=== PATIENT | male | born 1950 | race Caucasian/White ===

== ENCOUNTER 2017-04-09 08:25 | Emergency (ER) | payer MEDICARE ==
[2017-04-09] MEDS ORDERED: Acetaminophen TAB* 325 MG PO ONE (08:56)
--- NOTE | 2017-04-09 09:04 | UC ---
Shoulder Pain HPI - HPI Summary HPI Summary: 3 days ago he pickup something or moved something and got pain in left shoulder. Does not remember specifically what he did to start the pain - History of Current Complaint Chief Complaint: UCUpperExtremity Stated Complaint: LEFT SHOULDER INJURY Time Seen by Provider: 04/09/17 08:50 Hx Obtained From: Patient Onset/Duration: Sudden Onset, Lasting Days - 3, Still Present Timing: Constant Severity Initially: Moderate Severity Currently: Moderate Location Of Pain: Is Discrete @ - enterire left should Pain Intensity: 10 Pain Scale Used: 0-10 Numeric Character: Aching, Throbbing Aggravating Factor(s): Movement, Other - touch Alleviating Factor(s): Nothing Associated Signs And Symptoms: Positive: Swelling Related History: Similar Episode/Dx As - bursitis in the past about 10 years ago treated with steroid injections with execellent relief, Dominant Hand Right - Allergies/Home Medications Allergies/Adverse Reactions: Allergies Allergy/AdvReac Type Severity Reaction Status Date / Time Bee Venom Allergy Severe SWELLING, Verified 04/09/17 08:46 DIFFICULTY BREATHING Home Medications: Home Medications Acetaminophen [Tylenol 8 Hour Arthritis] 650 mg PO Q8H PRN 04/09/17 [History Confirmed 04/09/17] Amlodipine Besylate [Norvasc 10 mg tab] 10 mg PO DAILY 04/09/17 [History Confirmed 04/09/17] Ascorbic Acid [C 500] 500 mg PO 04/09/17 [History] Aspirin EC Low Dose* [Ecotrin EC Low Dose 81 MG*] 81 mg PO DAILY 04/09/17 [ History Confirmed 04/09/17] Atenolol TAB* [Tenormin TAB* 25 MG] 25 mg PO DAILY 04/09/17 [History Confirmed 04/09/17] Cholecalciferol [D 1000] 1,000 unit PO DAILY 04/09/17 [History Confirmed ] Clopidogrel TAB* [Plavix TAB*] 75 mg PO DAILY 04/09/17 [History Confirmed ] Docusate CAP* [Colace Cap*] 100 mg PO DAILY 04/09/17 [History Confirmed 04/09/17 ] Fiber [Fiber Adult Gummies 2 gm] 1 chw PO DAILY 04/09/17 [History Confirmed 08/21] Multiple Vitamins W/ Minerals [Multivitamin Adults] 1 tab PO DAILY 04/09/17 [ History Confirmed 04/09/17] Nitroglycerin TAB 0.4 MG* 0.4 mg SL Q5M PRN 04/09/17 [History Confirmed 04/09/17 ] [place]-3 Fatty Acids [Fish Oil] 1,000 mg PO 04/09/17 [History] Simvastatin TAB(NF) [Zocor 20 MG (NF)] 40 mg PO 1700 04/09/17 [History Confirmed 04/09/17] Tamsulosin CAP* [Flomax CAP*] 0.4 mg PO DAILY 04/09/17 [History Confirmed ] Vardenafil (NF) [Levitra (NF)] 04/09/17 [History] PMH/Surg Hx/FS Hx/Imm Hx Previously Healthy: No Endocrine History: Dyslipidemia Cardiovascular History: Cardiac Disease - Social History Occupation: Employed Full-time, Employed Part-time Lives: With Family Alcohol Use: None Substance Use Type: None Smoking Status (MU): Never Smoked Tobacco Review of Systems Constitutional: Negative Skin: Negative Eyes: Negative ENT: Negative Respiratory: Negative Cardiovascular: Negative Gastrointestinal: Negative Genitourinary: Negative Motor: Negative Neurovascular: Negative Musculoskeletal: Arthralgia - left shoulder---hurts with touch and movement, Neurological: Negative Psychological: Negative Is Patient Immunocompromised?: No All Other Systems Reviewed And Are Negative: Yes Physical Exam Triage Information Reviewed: Yes Appearance: Well-Appearing, No Pain Distress, Well-Nourished Vital Signs Reviewed: Yes Eye Exam: Normal Eyes: Positive: Conjunctiva Clear ENT Exam: Normal ENT: Positive: Normal ENT inspection, Hearing grossly normal. Negative: Nasal drainage, Trismus, Muffled voice, Hoarse voice Dental Exam: Normal Neck exam: Normal Neck: Positive: Supple, Nontender, No Lymphadenopathy Respiratory Exam: Normal Respiratory: Positive: Chest non-tender, Lungs clear, Normal breath sounds, No respiratory distress, No accessory muscle use Cardiovascular Exam: Normal Cardiovascular: Positive: RRR, No Murmur, Pulses Normal, Brisk Capillary Refill Musculoskeletal Exam: Normal Musculoskeletal: Positive: No Edema, Strength Limited @ - left shoulder, ROM Limited @ - left shoulder Neurological Exam: Normal Neurological: Positive: Alert Psychological Exam: Normal Skin Exam: Normal Diagnostics - Radiology No standard instances Xray Interpretation: Positive (See Comments) - CAlcific Tendonitis Radiology Interpretation Completed By: ED Physician, Radiologist Shoulder Course/Dx - Course Assessment/Plan: sling, ortho, pain med, steriod po rest - Differential Dx/Diagnosis Provider Diagnoses: Left Shoulder calcific Tendonitis Discharge - Discharge Plan Condition: Stable Disposition: HOME Prescriptions: HYDROcodone/ACETAMIN 5-325 MG* [Jesup 5-325 TAB*] 1 tab PO Q4H PRN #20 tab MDD 6 PRN Reason: pain Methylprednisolone [Medrol Dosepak 4 MG*] 4 mg PO .SEE JAMES INSTRUCTION #1 james Patient Education Materials: Calcific Tendinitis (ED) Referrals: Benedict Mares MD [Medical Doctor] - 3 Days
[2017-04-09 09:07] VITALS: BP 123/70
--- NOTE | 2017-04-09 09:38 | RAD ---
INDICATION: Left shoulder pain radiating down the left arm COMPARISON: None. TECHNIQUE: 4 views of the left shoulder were obtained. FINDINGS: Overlying the superior lateral humeral head there is lobulated appearing calcification measuring up to 8 x 16 mm overlying the expected location of the supraspinatus tendon. The adequately corticated bones are in normal alignment. Joint spaces appear maintained. No fracture, dislocation or focal bony abnormality is seen. IMPRESSION: IN THE CORRECT CLINICAL SETTING THE RADIOGRAPHIC FINDINGS COULD BE SEEN IN CALCIFIC TENDINITIS INVOLVING THE ROTATOR CUFF TENDONS. If the patient's symptoms persist, follow-up imaging is recommended.
== END 2017-04-09 09:53 | disposition home or self-care (01) ==
LOC: UCCORT 08:25
DX: M75.32 Calcific tendinitis of left shoulder (principal); E78.5 Hyperlipidemia, unspecified; I51.9 Heart disease, unspecified; Z79.01 Long term (current) use of anticoagulants; Z79.82 Long term (current) use of aspirin
CPT/HCPCS: 99212; A9270-GY; G0463

== ENCOUNTER 2017-05-08 08:42 | Emergency (ER) | payer MEDICARE ==
--- OUTSIDE RECORDS SUMMARY | 2017-05-08 08:58 | XMS REPORT ---
:1950 External Reference #:[id number] Author Organization [employer] Address [address] [address] Phone [phone] Care Team Providers Name Role Phone Anil Salgado III, MD Primary Care Physician Unavailable Payers Type Date Identification Numbers Payment Provider Subscriber Medicare Primary Policy Number: [id number] Medicare Dm Saldana PayID: [id number] [address] [place] [address] [facility] Part B Policy Number: [id number] [facility] Dm Saldana PayID: [id number] [address] [place] [address] Problems Date Description Provider Status Onset: 05/10/2011 Benign essential hypertension Anil Salgado M.D. Active Onset: 05/10/2011 Coronary arteriosclerosis Anil Salgado M.D. Active Onset: 05/10/2011 Pure hypercholesterolemia Anil Salgado M.D. Active Onset: 05/10/2011 Carotid artery occlusion Anil Salgado M.D. Active Onset: 02/10/2015 Essential hypertension Anil Salgado M.D. 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 Began age 13 ETOH Use consumes 2-3 beers per week Smoking Patient is a former smoker Exercise Type/Frequency Walks on occ. 15-20 minutes most days Allergies, Adverse Reactions, Alerts Date Description Reaction Status Severity Comments 10/14/2008 Environmental active 10/14/2008 Bee Stings active 01/13/2014 Crestor active leg cramps Medications Medication Date Status Form Strength Qnty SIG Indications Ordering Provider Plavix 11/08/ Active Tablets 75mg 30tabs 1 by mouth Other 2015 every day Ordering Provider Fiber Select 08/10/ Active Chewtabs 120uni 2 chewtabs Anil Ortiz Gummies 2015 ts by mouth Naomi, twice a M.D. day Amlodipine 05/31/ Active Tablets 10mg 30tabs take 1 Anil Ortiz Besylate 2011 tablet by Naomi, mouth once M.D. daily;pt needs appt. with MD before gtting more refills Fish Oil 10/26/ Active Capsules 1000mg 90caps 2 po qd Anil Ortiz 2009 Chantal Salgado Multivitamins 10/14/ Active Tablets 90tabs 1 po qd Jorge 2008 Jaziel Méndez, Levitra / Active Tablets 10mg i tab by Unknown 0000 mouth daily as needed Colace / Active Capsules 100mg 60caps prn Unknown 0000 Flomax / Active Capsules 0.4mg 1 by mouth Unknown 0000 every day Atenolol / Active Tablets 25mg 15tabs take 1 Marcos 0000 tablet by Pardeep Valerio, mouth once M.D.,FACP daily Nitrostat / Active Tablets 0.4mg one sl Unknown 0000 Sub q5min up to 3 doses as needed Tylenol / Active Tablets ER 650mg as needed Unknown Arthritis Pain 0000 Vitamin C / Active Tablets 500mg 1 by mouth Unknown 0000 every day Vitamin D / Active Tablets 1000Unit by mouth Unknown 0000 everyday Simvastatin / Active Tablets 20mg take 1 Unknown 0000 tablet by mouth once daily Aspirin / Active Tablets 325mg take 1 by Unknown 0000 mouth once a day and may repeat 1 dose prn for pain Sulfamethoxazol 02/15/ Hx Tablets 800-160mg 42tabs 1 by mouth R30.0 Anil paiz/Trimethoprim 2015 - twice a Naomi DS 04/06/ day M.D. 2016 Aspirin 11/08/ Hx Chewtabs 81mg 1 by mouth Anil Ortiz 2015 - every day Naomi 04/12/ M.D. 2016 Lovastatin 06/27/ Hx Tablets 20mg 90tabs po qhs 272.0 Anil Ortiz 2011 - Naomi M.D. 2011 Pravastatin 05/10/ Hx Tablets 40mg 30tabs 1 tablet 272.0 Anil Zafar 2011 - daily at Naomi, 06/27/ bedtime M.D. 2011 Ok To Return To No Anil Ortiz Work, But Only 2009 - Naomi perez, Light Duty For 05/02/ lifting, M.D. 1 Week 2009 twisting Celebrex 07/07/ Hx Capsules 200mg 30caps 1 po qd Anil Ortiz 2009 - Naomi, M.D. 2009 Lovaza 10/27/ Hx Capsules 1gm 90caps 1 po tid Anil Ortiz 2008 - Naomi, M.D. 2009 Aspirin 10/14/ Hx Tablets DR 325mg 30tabs 1 po qd Van 2008 - Doren, 11/08/ Jaziel, DO 2015 Ibuprofen 10/14/ Hx Capsules 200mg PO 2 po Van 2008 - bid, prn Doren, Jaziel, DO 2014 Combivent 1Month 2 puffs Van Inhaler 2008 - qid prn Dorkofi, 02/10/ Jaziel, DO 2014 Norvasc / Hx Tablets 10mg 30tabs 1 po qd Anil Ortiz 0000 - Naomi, M.D. 2011 Crestor / Hx Tablets 10mg 30tabs 1 po qd Anil Ortiz 0000 - Naomi, M.D. 2011 Lovaza / Hx Capsules 1000mg 90caps 1 po bid Anil Edwards - Naomi, M.D. 2008 Pravastatin 00/ Hx Tablets 20mg 30tabs 1 tablet Unknown Sodium 0000 - by mouth 05/20/ once daily 2012 at bedtime Coq-10 / Hx Capsules 100mg 90caps 1 po qd Unknown 0000 - 2015 Lovastatin /00/ Hx Tablets 20mg 90tabs 1 po qhs Anil Edwards - Naomi, M.D. 2014 Fluvastatin /00/ Hx Capsules 20mg 1 tablet Unknown Sodium 0000 - daily 2015 Livalo 00/ Hx Tablets 2mg take 1 Unknown 0000 - tablet 2015 evening Medications Administered in Office Medication Date Status Form Strength Qnty SIG Indications Ordering Provider Celestone 3 mg Administered Injection León M and 3mg Chay Barker MD Immunizations CPT Code Status Date Vaccine Lot # [id number] Given 10/14/2008 Tetanus And Diptheria (Td) For Adult Use TD-160 Preservative Free Vital Signs Date Vital Result Comment 04/13/2017 Height 67.75 inches 5'7.75" Heart Rate 76 /min BP Systolic Sitting 140 mmHg BP Diastolic Sitting 88 mmHg Respiratory Rate 12 /min no respiratory difficulties Pain Level 7 04/09/2017 Height 67.75 inches 5'7.75" Weight 215.00 lb Heart Rate 78 /min BP Systolic Sitting 126 mmHg BP Diastolic Sitting 76 mmHg Respiratory Rate 18 /min Body Temperature 98.8 F Pain Level 9 BMI (Body Mass Index) 32.9 kg/m2 02/16/2016 Height 67.75 inches 5'7.75" Weight 218.00 lb Heart Rate 89 /min BP Systolic Sitting 142 mmHg BP Diastolic Sitting 76 mmHg Body Temperature 98.5 F O2 % BldC Oximetry 97 % BMI (Body Mass Index) 33.4 kg/m2 08/11/2015 Weight 225.00 lb Heart Rate 77 /min BP Systolic Sitting 137 mmHg BP Diastolic Sitting 77 mmHg Body Temperature 97.6 F 02/10/2015 Height 67.75 inches 5'7.75" Weight 220.00 lb Heart Rate 88 /min BP Systolic Sitting 128 mmHg BP Diastolic Sitting 88 mmHg Respiratory Rate 13 /min Body Temperature 98.0 F O2 % BldC Oximetry 97 % BMI (Body Mass Index) 33.7 kg/m2 01/13/2014 Height 67.75 inches 5'7.75" Weight 209.00 lb Heart Rate 76 /min BP Systolic Sitting 122 mmHg BP Diastolic Sitting 78 mmHg Respiratory Rate 14 /min Body Temperature 98.5 F O2 % BldC Oximetry 97 % BMI (Body Mass Index) 32.0 kg/m2 06/09/2013 Height 67.75 inches 5'7.75" Weight 209.50 lb Heart Rate 80 /min BP Systolic Sitting 120 mmHg BP Diastolic Sitting 68 mmHg BMI (Body Mass Index) 32.1 kg/m2 12/05/2012 Height 68 inches 5'8" Weight 204.00 lb Heart Rate 82 /min BP Systolic Sitting 124 mmHg BP Diastolic Sitting 80 mmHg BMI (Body Mass Index) 31.0 kg/m2 05/20/2012 Height 68 inches 5'8" Weight 207.00 lb Heart Rate 80 /min BP Systolic Sitting 120 mmHg BP Diastolic Sitting 80 mmHg BMI (Body Mass Index) 31.5 kg/m2 11/16/2011 Height 68 inches 5'8" Weight 204.25 lb Heart Rate 79 /min BP Systolic Sitting 140 mmHg irreg. BP Diastolic Sitting 80 mmHg irreg. BMI (Body Mass Index) 31.1 kg/m2 05/10/2011 Height 69.5 inches 5'9.50" Weight 210.00 lb Heart Rate 100 /min BP Systolic Sitting 142 mmHg BP Diastolic Sitting 70 mmHg BMI (Body Mass Index) 30.6 kg/m2 11/14/2010 Weight 202.00 lb Heart Rate 76 /min BP Systolic Sitting 132 mmHg BP Diastolic Sitting 78 mmHg 05/10/2010 Weight 206.00 lb Heart Rate 76 /min BP Systolic Sitting 126 mmHg BP Diastolic Sitting 84 mmHg 11/30/2009 Heart Rate 82 /min BP Systolic Sitting 130 mmHg BP Diastolic Sitting 70 mmHg 10/26/2009 Weight 203.00 lb Heart Rate 68 /min BP Systolic Sitting 134 mmHg BP Diastolic Sitting 70 mmHg 06/30/2009 Weight 202.00 lb Heart Rate 80 /min BP Systolic Sitting 134 mmHg BP Diastolic Sitting 80 mmHg 01/14/2009 Weight 202.00 lb Heart Rate 76 /min BP Systolic Sitting 110 mmHg BP Diastolic Sitting 68 mmHg 10/14/2008 Height 68 inches 5'8" Weight 196.00 lb Heart Rate 80 /min BP Systolic Sitting 156 mmHg BP Diastolic Sitting 82 mmHg BMI (Body Mass Index) 29.8 kg/m2 Results Test Date Test Result H/L Range Note CBC Auto Diff 04/10/2017 White Blood Count 17.1 10^3/uL High 3.5-10.8 Red Blood Count 4.88 10^6/uL 4.0-5.4 Hemoglobin 15.1 g/dL 14.0-18.0 Hematocrit 45 % 42-52 Mean Corpuscular Volume 92 fL 80-94 Mean Corpuscular Hemoglobin 31 pg 27-31 Mean Corpuscular HGB Conc 34 g/dL 31-36 Red Cell Distribution Width 14 % 10.5-15 Platelet Count 229 10^3/uL 150-450 Mean Platelet Volume 8 um3 7.4-10.4 Abs Neutrophils 15.4 10^3/uL High 1.5-7.7 Abs Lymphocytes 0.6 10^3/uL Low 1.0-4.8 Abs Monocytes 1.1 10^3/uL High 0-0.8 Abs Eosinophils 0 10^3/uL 0-0.6 Abs Basophils 0 10^3/uL 0-0.2 Abs Nucleated RBC 0.01 10^3/uL Granulocyte % 90.1 % High 38-83 Lymphocyte % 3.5 % Low 25-47 Monocyte % 6.2 % 1-9 Eosinophil % 0 % 0-6 Basophil % 0.2 % 0-2 Nucleated Red Blood Cells % 0.1 Laboratory test finding 04/10/2017 Erythrocyte Sed Rate 12 mm/Hr 0-40 C Reactive Protein 48.51 mg/L High < 5.00 1 Urinalysis Profile 02/16/2016 Urine Color Yellow Urine Appearance Cloudy Urine Specific [place] 1.015 1.010-1.030 Urine pH 6.0 5-9 Urine Urobilinogen Negative Negative Urine Ketones Negative Negative Urine Protein Negative Negative Urine Leukocytes 3+ Negative Urine Blood Negative Negative Urine Nitrite Negative Negative Urine Bilirubin Negative Negative Urine Glucose Negative Negative Urine White Blood Cell 3+(>20/hpf) Absent Urine Red Blood Cell 1+(3-5/hpf) Absent Urine Bacteria 3+ Absent Urine Squamous Epithelial Cell Present Absent Urine Culture And 02/16/2016 Urine Culture SEE RESULT BELOW 2 Sensitivities Laboratory test finding 02/16/2016 PSA Diagnostic 5.010 ng/mL High 0- 4.000 3 Ua Routine 02/16/2016 Ua Specific [place] 1.015 Ua PH 6 Ua Color yellow Ua Appera clear Ua WBC + Ua Protein trace Ua Glucose neg Ua Ketones neg Ua Bilirubin neg Ua Urobilinogen normal Ua Nitrite neg Ua Occult Blood neg Laboratory test finding 04/08/2015 Surgical Pathology SEE RESULT BELOW 4 Laboratory test finding 11/14/2011 PSA,Diagnostic 3.06 NG/ML 0-4 5 Laboratory test finding 09/25/2011 Alt (SGPT) 30 U/L 17-63 Ast (Sgot) 25 U/L 12-42 Lipid Profile (Trig/Chol/HDL) 09/25/2011 Triglyceride 148 mg/dL 40-200 Cholesterol 158 mg/dL Less Than 200 6 High Density Lipoprotein 39 mg/dL Low 40-60 7 Cholesterol/HDL Ratio 4.05 AVERAGE 1-4.97 Low Density Lipoprotein 89 mg/dL Less Than 100 8 CBC Auto Diff 09/25/2011 White Blood Count 5.8 CUMM 4.8-10.8 Red Cell Count 4.56 CUMM Low 4.6-6.2 Hemoglobin 14.9 g/dL 14.0-18.0 Hematocrit 42 % 42-52 Mean Corpuscular Volume 92 um3 80-94 Mean Corpuscular Hemoglob 33 pg High 27-31 Mean Corpuscular HGB Cone 35 g/dL 32-36 Redcell Distribution WDTH 13 % 10.5-15 Platelet Count 192 CUMM 150-450 Mean Platelet Volume 8.6 um3 7.4-10.4 Gran % 75.7 % 38-83 Lymph % 14.8 % Low 25-47 Mononuclear % 7.5 % 1-9 Eosinophil % 1.4 % 0-6 Basophil % 0.6 % 0-2 Abs Lymphs 0.9 Low 1.0-4.8 Abs Mononuclear 0.4 0-0.8 Absolute Neutrophil Count 4.4 1.5-7.7 Abs Eosinophils 0.1 0-0.6 Abs Basophils 0 0-0.2 9 Comp Metabolic Panel 09/25/2011 Sodium 139 mmol/L 135-145 Potassium 4.5 mmol/L 3.5-5.0 Chloride 106 mmol/L 101-111 Co2 (Carbon Dioxide) 28.0 mmol/L 22-32 Anion Gap 5.0 mmol/L 2-11 10 Glucose 111 mg/dL High 70-100 BUN 14 mg/dL 6-24 Creatinine 0.9 mg/dL 0.50-1.40 One Over Creatinine 1.11 BUN/Creatinine Ratio 15.6 8-20 Calcium 9.0 mg/dL 8.1-9.9 Total Protein 5.9 GM/DL Low 6.2-8.1 Albumin 4.1 GM/DL 3.2-5.2 Globulin 1.8 GM/DL Low 2-4 Albumin/Globulin Ratio 2.3 1-3 Bilirubin Total 0.8 mg/dL 0.4-1.5 11 Alkaline Phosphatase 70 U/L 39-117 Alt (SGPT) 30 U/L 17-63 Ast (Sgot) 26 U/L 12-42 eGFR Non- 85.2 > 60 eGFR 109.6 > [address] Salgado's Lab Panel 09/25/2011 TSH 1.38 MIU/ML 0.34-5.60 Laboratory test finding 09/25/2011 PSA,Diagnostic 10.77 NG/ML High 0-4 13 Lipid Profile (Trig/Chol/HDL) 01/10/2011 Triglyceride 116 mg/dL 40-200 Cholesterol 158 mg/dL Less Than 200 14 High Density Lipoprotein 44 mg/dL 40-60 15 Cholesterol/HDL Ratio 3.59 AVERAGE 1-4.97 Low Density Lipoprotein 91 mg/dL Less Than 100 16 1 Acute inflammation: >10.00 2 SEE RESULT BELOW Name: DM SALDANA : [address]: Anil Salgado III, MD Acct: [id number] Unit: [id number] AGE: 66 Location: [facility] Re02/16/16 SEX: M Status: REG REF SPEC: [id number] SEAMUS: 02/16/16-[address] [facility] DR: Anil Salgado III, MD REQ: [id number] RECD: 02/16/16 STATUS: COMP _ SOURCE: URINE SPDESC: ORDERED: Urine Culture COMMENTS: [id number] Procedure Result Reported Site Urine Culture Final 02/18/16- 39 ML Organism 1 KLEBSIELLA PNEUMONIAE [place] Count 75-100,000 (Many) CFU/ML 1. KLEBSIELLA PNEUMONIAE M.I.C. RX --------- ------ Ampicillin R Cefazolin <=4 S Cefepime <=1 S Ceftriaxone <=1 S Ciprofloxacin <=0.25 S Gentamicin <=1 S Levofloxacin <=0.12 S Meropenem <=0.25 S Nitrofurantoin <=16 S Tetracycline <=1 S Pipercillin/Tazobactam <=4 S Trimethoprim/Sulfamethoxazole <=20 S Amoxicillin/Clavulanic Acid <=2 S Aztreonam <=1 S Contact the Microbiology Department for any additional antibiotic reporting. * ML - MAIN LAB ([facility]) . END OF REPORT * ML=Testing performed at Main Lab DEPARTMENT OF PATHOLOGY, [address] [place] [address] Mervin Beauchamp M.D. Director [facility] # [id number] 3 Serum levels of PSA measured using the Bro [place] DXI Hybritech immunoassay should not be interpreted as absolute evidence of the presence or absence of disease. The PSA value should be used in conjunction with other pertinent clinical diagnostic procedures. The values obtained with different assay methods or kits cannot be used interchangeably. 4 SEE RESULT BELOW Name: LESDM Hauser : [address]: Vitaliy Jones MD Acct: [id number] Unit: [id number] AGE: 65 Location: [facility] Re04/08/15 SEX: M Status: REG REF SPEC: [id number] SEAMUS: 04/08/15-[address]: Vitaliy Jones MD REQ: [id number] RECD: 04/08/15189 STATUS: YANNICK GAR DR: Anil Salgado III, MD _ ORDERED: LEVEL IV FINAL DIAGNOSIS Colon, 25 cm, biopsy: -- Hyperplastic polyp. CLINICAL HISTORY No additional information provided POST-OPERATIVE DIAGNOSIS Colonoscopy to terminal ileum - polyp at 25 cm., tics; 10 years GROSS DESCRIPTION The specimen is received in formalin labeled, Biopsy Colon at 25 cm, and consists of a 0.4 x 0.3 x 0.3 cm stern-gaitan irregular soft tissue fragment, which is submitted entirely in one cassette. Signed (signature on file) Mervin Beauchamp MD 1135 END OF REPORT * ML=Testing performed at Main Lab DEPARTMENT OF PATHOLOGY, [address] [place] [address] Mervin Beauchamp M.D. Director [facility] # [id number] 5 * SERUM LEVELS OF PSA MEASURED USING THE BRO Eduvant ACCESS HYBRITECH IMMUNOASSAY SHOULD NOT BE INTERPRETED ABSOLUTE EVIDENCE OF THE PRESENCE OR ABSENCE OF DISEASE. THE PSA VALUE SHOULD BE USED IN CONJUNCTION WITH OTHER PERTINENT CLINICAL DIAGNOSTIC PROCEDURES. The values obtained with different assay methods or kits cannot be used interchangeably. 6 CHOLESTEROL INTERPRETATION: Desirable: Less than 200 MG/DL Borderline-High Risk: 200-239 MG/DL High-Risk: 240 MG/DL and over 7 HDL INTERPRETATION: Undesirable: High Risk: Less than 40 MG/DL Desirable: Low Risk: Greater than 60 MG/DL 8 LDL INTERPRETATION: Low Risk Optimal Level: LDL Less than 100 MG/DL Near or Above Optimal: LDL 100-129 MG/DL Borderline High Risk: LDL 130-159 MG/DL High Risk: LDL 160-189 MG/DL Very High Risk: LDL Greater than 189 MG/DL 9 Lymphopenia % 10 Anion gap measurement may be of limited value in the presence of any alkalosis, especially in a combined acid base disorder. . 11 A metabolite of Naproxen, O-desmethylnaproxen, has been shown to interfere with the Jendrassik-Dunellen method for measuring total bilirubin. Samples from patients who have taken Naproxen have shown spurious elevation in total bilirubin levels. 12 Because ethnic data is not always readily available, this report includes an eGFR for both -Americans and non- Americans. The National Kidney Disease Education Program (NKDEP) does not endorse the use of the MDRD equation for patients that are not between the ages of 18 and 70, are , have extremes of body size, muscle mass, or nutritional status, or are non- or non-. According to the National Kidney Foundation, irrespective of diagnosis, the stage of the disease is based on the level of kidney function: Stage Description GFR(mL/min/1.73 m(2)) 1 Kidney damage with normal or decreased GFR 90 2 Kidney damage with mild decrease in GFR 60-89 3 Moderate decrease in GFR 30-59 4 Severe decrease in GFR 15-29 5 Kidney failure <15 (or dialysis) 13 * SERUM LEVELS OF PSA MEASURED USING THE iCeutica ACCESS HYBRITECH IMMUNOASSAY SHOULD NOT BE INTERPRETED ABSOLUTE EVIDENCE OF THE PRESENCE OR ABSENCE OF DISEASE. THE PSA VALUE SHOULD BE USED IN CONJUNCTION WITH OTHER PERTINENT CLINICAL DIAGNOSTIC PROCEDURES. The values obtained with different assay methods or kits cannot be used interchangeably. 14 CHOLESTEROL INTERPRETATION: Desirable: Less than 200 MG/DL Borderline-High Risk: 200-239 MG/DL High-Risk: 240 MG/DL and over 15 HDL INTERPRETATION: Undesirable: High Risk: Less than 40 MG/DL Desirable: Low Risk: Greater than 60 MG/DL 16 LDL INTERPRETATION: Low Risk Optimal Level: LDL Less than 100 MG/DL Near or Above Optimal: LDL 100-129 MG/DL Borderline High Risk: LDL 130-159 MG/DL High Risk: LDL 160-189 MG/DL Very High Risk: LDL Greater than 189 MG/DL Procedures Date CPT Code Description Status 04/09/2017 21211 Inject/Drain Joint/Bursa Major Completed 04/08/2015 Colonoscopy Completed Encounters Type Date Location Provider CPT E/M Dx Office Visit 04/09/2017 [facility] [place] [address] M75.32 10:15a [facility] Office Visit 02/16/2016 [facility] Anil Salgado, 05841 E78.00 3:00p - George Cornejo I10 I25.10 I73.9 N40.0 I71.4 R30.0 Z00.01 Office Visit 08/11/2015 3:40p [facility] - Anil Salgado, 44274 I10 Deejay Cornejo E78.0 I25.10 Office Visit 02/10/2015 3:00p [facility] Anil Salgado, 50188 Z00.00 - Deejay Cornejo I10 E78.0 I25.10 I73.9 M25.511 M25.512 M25.562 M25.561 I71.4 Z12.11 N40.0 Office Visit 01/13/2014 4:00p [facility] [place] [address] 272.0 Mcdonald 401.1 V70.0 Office Visit 06/09/2013 2:00p [facility] Anil Salgado, 30079 401.1 - Mcdonald M.D. 272.0 414.01 443.9 V73.89 Office Visit 12/05/2012 10:20a [facility] Anil Salgado, 01132 V70.0 - Mcdonald M.D. 401.1 414.01 272.0 433.10 Office Visit 05/20/2012 1:20p [facility] Anil Salgado, 16798 401.1 - Mcdonald M.D. 414.01 272.0 433.10 Office Visit 11/16/2011 3:20p [facility] Anil Salgado, 28702 401.1 - Mcdonald M.D. 414.01 272.0 433.10 214.8 Office Visit 05/10/2011 2:20p [facility] Anil Salgado, 27026 401.1 - Mcdonald M.D. 414.01 272.0 433.10 Office Visit 11/14/2010 3:00p DO Not Use [facility] Angel Salgado, 20292 401.1 [place] M.[facility]. 414.01 272.0 433.10 Office Visit 05/10/2010 3:00p DO Not Use [facility] Angel Salgado, 97876 401.1 [facility] M.D. 272.0 414.01 Office Visit 11/30/2009 2:40p DO Not Use [facility] Angel Naomi, 37992 786.50 [facility] M.D. Office Visit 10/26/2009 3:40p DO Not Use [facility] Angel Salgado, 98687 401.1 [facility] M.D. 272.0 414.01 790.21 Office Visit 06/30/2009 11:20a DO Not Use [facility] Angel Salgado, 60983 729.5 [facility] M.D. Office Visit 01/14/2009 3:45p [facility], 50899 414.01 [facility] 272.0 401.1 Office Visit 10/14/2008 2:00p [facility], 81704 272.0 [facility] 414.01 401.1 V06.5 Plan of Care Future Appointment(s):04/17/2017 8:45 am - Benedict Mares MD at [facility]97/08/2017 - Le[facility] Barker, MDM75.32 Calcific tendinitis of left shoulderFollow up:Follow up: maria isabel for calcific resection shoulder
--- OUTSIDE RECORDS SUMMARY | 2017-05-08 08:58 | XMS REPORT ---
:1950 External Reference #:[id number] Author Organization [employer] Address [address] [address] Phone [phone] Care Team Providers Name Role Phone Anil Salgado III, MD Primary Care Physician Unavailable Payers Type Date Identification Numbers Payment Provider Subscriber Medicare Primary Policy Number: [id number] Medicare Dm Saldana PayID: [id number] [address] [place] [address] [facility] Part B Policy Number: [id number] [facility] Dm Saldana PayID: [id number] [address] [place] [address] Problems Date Description Provider Status Onset: 05/10/2011 Benign essential hypertension Anil Salgado M.D. Active Onset: 05/10/2011 Coronary arteriosclerosis Anil Salgado M.D. Active Onset: 05/10/2011 Pure hypercholesterolemia Anil Salgado M.D. Active Onset: 05/10/2011 Carotid artery occlusion Anil Salgado M.D. Active Onset: 02/10/2015 Essential hypertension Anil Salgado M.D. Active Social History Type Date Description Comments Marital Status Lives With Occupation Sales [employer], partner [employer] Cigarette Use Former Cigarette Smoker Quit 2003; [...] R30.0 Anil paiz/Trimethoprim 2015 - twice a BENSON Salgado 04/06/ day M.D. 2016 Aspirin 11/08/ Hx Chewtabs 81mg 1 by mouth Anil Ortiz 2015 - every day Naomi 04/12/ M.D. 2016 Lovastatin 06/27/ Hx Tablets 20mg 90tabs po qhs 272.0 Anil Ortiz 2011 - Naomi M.D. 2011 Pravastatin 05/10/ Hx Tablets 40mg 30tabs 1 tablet 272.0 Anil Ortiz Sodium 2011 - daily at Naomi, 06/27/ bedtime M.D. 2011 Ok To Return To No Anil Ortiz Work, But Only 2009 - bendingNaomi, Light Duty For 05/02/ lifting, M.D. 1 [...] puffs Van Inhaler 2008 - qid prn Doren, 02/10/ Jaziel, DO 2014 Norvasc / Hx Tablets 10mg 30tabs 1 po qd Anil Ortiz - aNomi, M.D. 2011 Crestor / Hx Tablets 10mg 30tabs 1 po qd Anil Ortiz 0000 - Naomi, M.D. 2011 Lovaza / Hx Capsules 1000mg 90caps 1 po bid Anil Edwards - Naomi, M.D. 2008 Pravastatin / Hx Tablets 20mg 30tabs 1 tablet Unknown Sodium 0000 - by mouth 05/20/ once daily 2013 at bedtime Coq-10 / Hx Capsules 100mg 90caps 1 po qd Unknown 0000 - 2015 Lovastatin /00/ Hx Tablets 20mg 90tabs 1 po qhs Anil Ortiz 0000 - Naomi, M.D. 2014 Fluvastatin 00/ Hx Capsules 20mg 1 tablet Unknown Sodium 0000 - daily 2015 Livalo 00/ Hx Tablets 2mg take 1 Unknown 0000 - tablet 2015 evening Medications Administered in Office Medication Date Status Form Strength Qnty SIG Indications Ordering Provider Celestone 3 mg Administered Injection León M and 3mg Chay Barker MD Immunizations CPT Code Status Date Vaccine Lot # [id number] Given 10/14/2008 Tetanus And Diptheria (Td) For Adult Use TD-160 Preservative Free Vital Signs Date Vital Result Comment 04/17/2017 Height 67.75 inches 5'7.75" Weight 215.00 lb Heart Rate 76 /min BP Systolic Sitting 116 mmHg BP Diastolic Sitting 72 mmHg Respiratory Rate 16 /min Pain Level 2 BMI (Body Mass Index) 32.9 kg/m2 04/13/2017 Height 67.75 inches 5'7.75" Heart Rate [...] Color Yellow Urine Appearance Cloudy Urine Specific [place] 1.015 1.010-1.030 Urine pH 6.0 5-9 Urine [...] 4.000 3 Ua Routine 02/16/2016 Ua Specific [place] 1.015 Ua PH 6 Ua Color yellow [...] Attend Dr: Anil Salgado III, MD Acct: [id number] Unit: [id number] AGE: 66 Location: [facility] Re02/16/16 SEX: M Status: REG REF SPEC: [id number] SEAMUS: 02/16/[address]: Anil Salgado III, MD REQ: [id number] RECD: 02/16/16 STATUS: COMP _ SOURCE: URINE SPDESC: ORDERED: Urine Culture COMMENTS: [id number] Procedure Result Reported Site Urine Culture Final 02/18/16- 0839 ML Organism 1 KLEBSIELLA PNEUMONIAE [place] Count 75-100,000 (Many) CFU/ML 1. KLEBSIELLA PNEUMONIAE [...] antibiotic reporting. * ML - MAIN LAB ([facility]) . END OF REPORT * ML=Testing performed at Main Lab DEPARTMENT OF PATHOLOGY, [address] [place] [address] Mervin Beauchamp M.D. Director [facility] # [id number] 3 Serum levels of PSA measured using the Bro [place] DXI Hybritech immunoassay should not be interpreted as absolute evidence of the presence or absence of disease. The PSA value should be used in conjunction with other pertinent clinical diagnostic procedures. The values obtained with different assay methods or kits cannot be used interchangeably. 4 SEE RESULT BELOW Name: DM SALDANA : [address]: Vitaliy Jones MD Acct: [id number] Unit: [id number] AGE: 65 Location: [facility] Re04/08/15 SEX: M Status: REG REF SPEC: [id number] SEAMSU: 04/08/15-[address] [facility] [address]: Vitaliy Jones MD REQ: [id number] RECD: 04/08/15612 STATUS: YANNICK AGR DR: Anil Salgado III, MD _ ORDERED: [...] performed at Main Lab DEPARTMENT OF PATHOLOGY, [address] [place] [address] Mervin Beauchamp M.D. Director [facility] # [id number] 5 * SERUM LEVELS OF PSA MEASURED USING THE BRO Wellpepper ACCESS HYBRITECH IMMUNOASSAY SHOULD NOT BE INTERPRETED [...] has been shown to interfere with the Jendrassik-Over[place] method for measuring total bilirubin. Samples from [...] SERUM LEVELS OF PSA MEASURED USING THE PixSense ACCESS HYBRITECH IMMUNOASSAY SHOULD NOT BE INTERPRETED [...] Procedures Date CPT Code Description Status 04/09/2017 03721 Inject/Drain Joint/Bursa Major Completed 04/08/2015 Colonoscopy Completed Encounters Type Date Location Provider CPT E/M Dx Office Visit 04/09/2017 [facility] [place] [address] M75.32 10:15a [facility] Office Visit 02/16/2016 [facility] Anil Salgado, 35335 E78.00 3:00p - George Cornejo I10 I25.10 I73.9 N40.0 I71.4 R30.0 Z00.01 Office Visit 08/11/2015 3:40p [facility] Internal Medicine - Anil Salagdo, 15513 I10 Deejay Delong. E78.0 I25.10 Office Visit 02/10/2015 3:00p [facility] Internal Medicine Anil Salgado, 58994 Z00.00 - Garber M.Pardeep I10 E78.0 I25.10 I73.9 M25.511 M25.512 M25.562 M25.561 I71.4 Z12.11 N40.0 Office Visit 01/13/2014 4:00p [facility] [place] [address] 272.0 Garber 401.1 V70.0 Office Visit 06/09/2013 2:00p [facility] Internal Medicine Anil Salgado, 38817 401.1 - Garber M.D. 272.0 414.01 443.9 V73.89 Office Visit 12/05/2012 10:20a [facility] Internal Medicine Anil Salgado, 68779 V70.0 - Deejay M.DNoemi 401.1 414.01 272.0 433.10 Office Visit 05/20/2012 1:20p [facility] Internal Medicine Anil Salgado, 46663 401.1 - Deejay M.DNoemi 414.01 272.0 433.10 Office Visit 11/16/2011 3:20p [facility] Internal Medicine Anil Salgado, 41561 401.1 - Garber M.D. 414.01 272.0 433.10 214.8 Office Visit 05/10/2011 2:20p [facility] Internal Medicine Anil Salgado, 41503 401.1 - Deejay M.DNoemi 414.01 272.0 433.10 Office Visit 11/14/2010 3:00p DO Not Use [employer] At Anil Salgado, 81734 401.1 Malena M.DNoemi 414.01 272.0 433.10 Office Visit 05/10/2010 3:00p DO Not Use [employer]odetic Engineer At Anil Salgado, 30284 401.1 Malena M.DNoemi 272.0 414.01 Office Visit 11/30/2009 2:40p DO Not Use [employer] At Anil Salgado, 69208 786.50 Malena M.Pardeep Office Visit 10/26/2009 3:40p DO Not Use Geodetic Engineer At Anil Salgado, 10123 401.1 [facility] 272.0 414.01 790.21 Office Visit 06/30/2009 11:20a DO Not Use [facility]od[facility] Engineer At [facility], [address] 729.5 [facility] 01/14/2009 3:45p [facility], 55766 414.01 [facility] 272.0 401.1 Office Visit 10/14/2008 2:00p [facility], 54972 272.0 [facility] 414.01 401.1 V06.5 Plan of Care 04/13/2017 - León Barker, MDM75.32 Calcific tendinitis of left shoulderFollow up:Follow up: nicolas for calcific resection shoulder
--- OUTSIDE RECORDS SUMMARY | 2017-05-08 08:59 | XMS REPORT ---
:1950 External Reference #:[id number] Author Organization [employer] Address [address] [address] Phone [phone] Care Team Providers Name Role Phone Anil Salgado III, MD Primary Care Physician Unavailable Payers Type Date Identification Numbers Payment Provider Subscriber Medicare Primary Policy Number: [id number] Medicare Dm Saldana PayID: [id number] [address] [place] [address] [facility] Part B Policy Number: [id number] [facility] Dm Saldana PayID: [id number] [address] [place] [address] Problems Date Description Provider Status Onset: 05/10/2011 Benign essential hypertension Anil Salgado M.D. Active Onset: 05/10/2011 Coronary arteriosclerosis Anil Salgado M.D. Active Onset: 05/10/2011 Pure hypercholesterolemia Anil Salgado M.D. Active Onset: 05/10/2011 Carotid artery occlusion Anil Salgado M.D. Active Onset: 02/10/2015 Essential hypertension Anil Salgado M.D. 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 2016 Lovastatin 06/27/ Hx Tablets 20mg 90tabs po qhs 272.0 Anil Ortiz 2011 - Naomi 11/15/ M.D. 2011 Pravastatin 05/10/ Hx Tablets 40mg 30tabs 1 tablet 272.0 Anil Ortiz Sodium 2011 - daily at Naomi, 06/27/ bedtime M.D. 2011 Ok To Return To No Anil Ortiz Work, But Only 2009 - bendingNaomi, Light Duty For 05/02/ lifting, M.D. 1 Week 2009 twisting Celebrex 07/07/ Hx Capsules 200mg 30caps 1 po qd Anil E. 2009 - Naomi, M.D. 2009 Lovaza 10/27/ Hx Capsules 1gm 90caps 1 po tid Anil Ortiz 2008 - Naomi, M.D. 2009 Aspirin 10/14/ Hx Tablets DR 325mg 30tabs 1 po qd Van 2008 - Doren, , DO 2015 Ibuprofen 10/14/ Hx Capsules 200mg PO 2 po Van 2008 - bid, prn Doren, , DO 2014 Combivent Hx 1Month 2 puffs Van Inhaler 2008 - qid prn Dorkofi, , DO 2014 Norvasc / Hx Tablets 10mg 30tabs 1 po qd Anil Paiz. 0000 - Naomi, M.D. 2011 Crestor 00/ Hx Tablets 10mg 30tabs 1 po qd Anil Paiz. 0000 - Naomi, M.D. 2011 Lovaza 00/ Hx Capsules 1000mg 90caps 1 po bid Anil Ortiz 0000 - Naomi, 10/27/ M.D. 2008 Pravastatin 00/ Hx Tablets 20mg 30tabs 1 tablet Unknown Sodium 0000 - by mouth 05/20/ once daily 2013 at bedtime Coq-10 / Hx Capsules 100mg 90caps 1 po qd Unknown 0000 - 2015 Lovastatin 00/00/ Hx Tablets 20mg 90tabs 1 po qhs Anil ENoemi 0000 - Naomi, M.D. 2014 Fluvastatin 00/00/ Hx Capsules 20mg 1 tablet Unknown Sodium 0000 - daily 2015 Livalo 00/00/ Hx Tablets 2mg take 1 Unknown 0000 - tablet 2015 evening Immunizations CPT Code Status Date Vaccine Lot # [id number] Given 10/14/2008 Tetanus And Diptheria (Td) For Adult Use TD-160 Preservative Free Vital Signs Date Vital Result Comment 04/09/2017 Height 67.75 inches 5'7.75" Weight 215.00 lb Heart Rate 78 /min BP Systolic Sitting 126 mmHg BP Diastolic Sitting 76 mmHg Respiratory Rate 18 /min Pain Level 9 BMI (Body Mass Index) [...] Test Date Test Result H/L Range Note Urinalysis Profile 02/16/2016 Urine Color Yellow Urine Appearance Cloudy Urine Specific [place] 1.015 1.010-1.030 Urine pH 6.0 5-9 Urine [...] And 02/16/2016 Urine Culture SEE RESULT BELOW 1 Sensitivities Laboratory test finding 02/16/2016 PSA Diagnostic 5.010 ng/mL High 0- 4.000 2 Ua Routine 02/16/2016 Ua Specific [place] 1.015 Ua PH 6 Ua Color yellow Ua Appera clear Ua WBC + Ua Protein trace Ua Glucose neg Ua Ketones neg Ua Bilirubin neg Ua Urobilinogen normal Ua Nitrite neg Ua Occult Blood neg Laboratory test finding 04/08/2015 Surgical Pathology SEE RESULT BELOW 3 Laboratory test finding 11/14/2011 PSA,Diagnostic 3.06 NG/ML 0-4 4 Laboratory test finding 09/25/2011 Alt (SGPT) 30 U/L 17-63 Ast (Sgot) 25 U/L 12-42 Lipid Profile (Trig/Chol/HDL) 09/25/2011 Triglyceride 148 mg/dL 40-200 Cholesterol 158 mg/dL Less Than 200 5 High Density Lipoprotein 39 mg/dL Low 40-60 6 Cholesterol/HDL Ratio 4.05 AVERAGE 1-4.97 Low Density Lipoprotein 89 mg/dL Less Than 100 7 CBC Auto Diff 09/25/2011 White Blood Count [...] Eosinophils 0.1 0-0.6 Abs Basophils 0 0-0.2 8 Comp Metabolic Panel 09/25/2011 Sodium 139 mmol/L 135-145 Potassium 4.5 mmol/L 3.5-5.0 Chloride 106 mmol/L 101-111 Co2 (Carbon Dioxide) 28.0 mmol/L 22-32 Anion Gap 5.0 mmol/L 2-11 9 Glucose 111 mg/dL High 70-100 BUN 14 mg/dL 6-24 Creatinine 0.9 mg/dL 0.50-1.40 One Over Creatinine 1.11 BUN/Creatinine Ratio 15.6 8-20 Calcium 9.0 mg/dL 8.1-9.9 Total Protein 5.9 GM/DL Low 6.2-8.1 Albumin 4.1 GM/DL 3.2-5.2 Globulin 1.8 GM/DL Low 2-4 Albumin/Globulin Ratio 2.3 1-3 Bilirubin Total 0.8 mg/dL 0.4-1.5 10 Alkaline Phosphatase 70 U/L 39-117 Alt (SGPT) 30 U/L 17-63 Ast (Sgot) 26 U/L 12-42 eGFR Non- 85.2 > 60 eGFR 109.6 > [address] Salgado's Lab Panel 09/25/2011 TSH 1.38 MIU/ML 0.34-5.60 Laboratory test finding 09/25/2011 PSA,Diagnostic 10.77 NG/ML High 0-4 12 Lipid Profile (Trig/Chol/HDL) 01/10/2011 Triglyceride 116 mg/dL 40-200 Cholesterol 158 mg/dL Less Than 200 13 High Density Lipoprotein 44 mg/dL 40-60 14 Cholesterol/HDL Ratio 3.59 AVERAGE 1-4.97 Low Density Lipoprotein 91 mg/dL Less Than 100 15 1 SEE RESULT BELOW Name: DM SALDANA : [address]: Anil Salgado III, MD Acct: [id number] Unit: [id number] AGE: 66 Location: [facility] Re02/16/16 SEX: M Status: REG REF SPEC: [id number] SEAMUS: 02/16/16-[address]: Anil Salgado III, MD REQ: [id number] RECD: 02/16/16 STATUS: COMP _ SOURCE: URINE SPDESC: ORDERED: Urine Culture COMMENTS: [id number] Procedure Result Reported Site Urine Culture Final 02/18/16- 0839 ML Organism 1 KLEBSIELLA PNEUMONIAE [place] Count 75-100,000 (Many) CFU/ML 1. KLEBSIELLA PNEUMONIAE [...] antibiotic reporting. * ML - MAIN LAB ([facility]) . END OF REPORT * ML=Testing performed at Main Lab DEPARTMENT OF PATHOLOGY, [address] [place] [address] Mervin Beauchamp M.D. Director [facility] # [id number] 2 Serum levels of PSA measured using the Bro Panda DXI Hybritech immunoassay should not be interpreted as absolute evidence of the presence or absence of disease. The PSA value should be used in conjunction with other pertinent clinical diagnostic procedures. The values obtained with different assay methods or kits cannot be used interchangeably. 3 SEE RESULT BELOW Name: DM SALDANA : [address]: Vitaliy Jones MD Acct: [id number] Unit: [id number] AGE: 65 Location: [facility] Re04/08/15 SEX: M Status: REG REF SPEC: [id number] SEAMUS: 04/08/15-1099 [facility] DR: Vitaliy Jones MD REQ: [id number] RECD: 04/08/15870 STATUS: YANNICK GAR DR: Anil Salgado III, [...] performed at Main Lab DEPARTMENT OF PATHOLOGY, [address] [place] [address] Mervin Beauchamp M.D. Director [facility] # [id number] 4 * SERUM LEVELS OF PSA MEASURED USING THE BRO PANDA ACCESS HYBRITECH IMMUNOASSAY SHOULD NOT BE INTERPRETED ABSOLUTE EVIDENCE OF THE PRESENCE OR ABSENCE OF DISEASE. THE PSA VALUE SHOULD BE USED IN CONJUNCTION WITH OTHER PERTINENT CLINICAL DIAGNOSTIC PROCEDURES. The values obtained with different assay methods or kits cannot be used interchangeably. 5 CHOLESTEROL INTERPRETATION: Desirable: Less than 200 MG/DL Borderline-High Risk: 200-239 MG/DL High-Risk: 240 MG/DL and over 6 HDL INTERPRETATION: Undesirable: High Risk: Less than 40 MG/DL Desirable: Low Risk: Greater than 60 MG/DL 7 LDL INTERPRETATION: Low Risk Optimal Level: LDL Less than 100 MG/DL Near or Above Optimal: LDL 100-129 MG/DL Borderline High Risk: LDL 130-159 MG/DL High Risk: LDL 160-189 MG/DL Very High Risk: LDL Greater than 189 MG/DL 8 Lymphopenia % 9 Anion gap measurement may be of limited value in the presence of any alkalosis, especially in a combined acid base disorder. . 10 A metabolite of Naproxen, O-desmethylnaproxen, has been shown to interfere with the Jendrassik-Chelly method for measuring total bilirubin. Samples from patients who have taken Naproxen have shown spurious elevation in total bilirubin levels. 11 Because ethnic data is not always readily [...] 15-29 5 Kidney failure <15 (or dialysis) 12 * SERUM LEVELS OF PSA MEASURED USING THE [place] ACCESS HYBRITECH IMMUNOASSAY SHOULD NOT BE INTERPRETED ABSOLUTE EVIDENCE OF THE PRESENCE OR ABSENCE OF DISEASE. THE PSA VALUE SHOULD BE USED IN CONJUNCTION WITH OTHER PERTINENT CLINICAL DIAGNOSTIC PROCEDURES. The values obtained with different assay methods or kits cannot be used interchangeably. 13 CHOLESTEROL INTERPRETATION: Desirable: Less than 200 MG/DL Borderline-High Risk: 200-239 MG/DL High-Risk: 240 MG/DL and over 14 HDL INTERPRETATION: Undesirable: High Risk: Less than 40 MG/DL Desirable: Low Risk: Greater than 60 MG/DL 15 LDL INTERPRETATION: Low Risk Optimal Level: LDL Less than 100 MG/DL Near or Above Optimal: LDL 100-129 MG/DL Borderline High Risk: LDL 130-159 MG/DL High Risk: LDL 160-189 MG/DL Very High Risk: LDL Greater than 189 MG/DL Procedures Date CPT Code Description Status 04/09/2017 72888 Inject/Drain Joint/Bursa Major Completed 04/08/2015 Colonoscopy Completed Encounters Type Date Location Provider CPT E/M Dx Office Visit 04/09/2017 [facility] [place] [address] M75.32 10:15a [facility] Office Visit 02/16/2016 [facility] Anil Salgado, 57013 E78.00 3:00p - George Cornejo I10 I25.10 I73.9 N40.0 I71.4 R30.0 Z00.01 Office Visit 08/11/2015 3:40p [facility] Internal Medicine - Anil Salgado, 97755 I10 Deejay Cornejo E78.0 I25.10 Office Visit 02/10/2015 3:00p [facility] Medicine Anil Salgado, 52754 Z00.00 - Deejay Lockhart.Pardeep I10 E78.0 I25.10 I73.9 M25.511 M25.512 M25.562 M25.561 I71.4 Z12.11 N40.0 Office Visit 01/13/2014 4:00p [facility] Internal Medicine - Gildardo Amador, LACHELLE [address] 272.0 [place] 401.1 V70.0 Office Visit 06/09/2013 2:00p [facility] Internal Medicine Anil Salgado, 24096 401.1 - [place] M.DNoemi 272.0 414.01 443.9 V73.89 Office Visit 12/05/2012 10:20a [facility] Medicine Anil Salgado, 87061 V70.0 - Deejay Lockhart.Pardeep 401.1 414.01 272.0 433.10 Office Visit 05/20/2012 1:20p [facility] Anil Salgado, 39279 401.1 - Deejay Lockhart.Pardeep 414.01 272.0 433.10 Office Visit 11/16/2011 3:20p [facility] Anil Salgado, 20003 401.1 - [place] M.DNoemi 414.01 272.0 433.10 214.8 Office Visit 05/10/2011 2:20p [facility] Anil Salgado, 94972 401.1 - Deejay Lockhart.Pardeep 414.01 272.0 433.10 Office Visit 11/14/2010 3:00p DO Not Use Maintenance Engineer At Anil Salgado, 86089 401.1 [place] M.DNoemi 414.01 272.0 433.10 Office Visit 05/10/2010 3:00p DO Not Use Maintenance Engineer At Anil Salgado, 01418 401.1 [place] M.DNoemi 272.0 414.01 Office Visit 11/30/2009 2:40p DO Not Use Maintenance Engineer At Anil Salgado, 08888 786.50 [place] M.DNoemi Office Visit 10/26/2009 3:40p DO Not Use Maintenance Engineer At Anil Salgado, 81016 401.1 [facility] 272.0 414.01 790.21 Office Visit 06/30/2009 11:20a DO Not Use Maintenance Engineer At Counts Include [address] [facility], [address] 729.5 [facility] 01/14/2009 3:45p [facility] Counts Include [address] [facility] At [facility], 855[address] 414.01 [facility] 272.0 401.1 Office Visit 10/14/2008 2:00p [facility] At Counts Include [address] [facility] At [facility], 16718 272.0 [facility] 414.01 401.1 V06.5 Plan of Care 04/09/2017 - León Barker, MDM75.32 Calcific tendinitis of left shoulderNew Xrays:CT Extremity Upper Left WoNew Therapy:Physical TherapyFollow up:Follow up : after testing is completed
[2017-05-08 09:03] VITALS: BP 135/76
--- NOTE | 2017-05-08 09:57 | RAD ---
HISTORY: Left-sided testicular pain and swelling COMPARISONS: None TECHNIQUE: Multiple transverse and longitudinal ultrasound images were obtained of the scrotum, using grayscale, color Doppler, and spectral Doppler imaging. FINDINGS: RIGHT: RIGHT TESTICLE: The right testicle measures 4.6 x 2.6 x 2.9 cm. The right testicle is homogeneous in echotexture, without testicular parenchymal mass. Normal arterial and venous waveforms are identified within the right testicle on spectral Doppler imaging. RIGHT EPIDIDYMIS: The right epididymis measures 2 cm at the head. There is a 0.8 cm cyst of the epididymal head. RIGHT SCROTUM: There is a small right hydrocele. There is no varicocele. LEFT: LEFT TESTICLE: The left testicle measures 3.9 x 2.9 x 2.6 cm. The left testicle is homogeneous in echotexture, without testicular parenchymal mass. Normal arterial and venous waveforms are identified within the left testicle on spectral Doppler imaging. LEFT EPIDIDYMIS: The left epididymis measures 1.9 cm at the head. There is a large cyst of the epididymal head measuring up to 4.6 cm in size. LEFT SCROTUM: There is a large left-sided hydrocele. OTHER: None IMPRESSION: 1. NO TESTICULAR PARENCHYMAL MASS. 2. NO SONOGRAPHIC FEATURES OF TORSION. PLEASE NOTE THAT PARTIAL OR INTERMITTENT TORSION MAY BE SONOGRAPHICALLY NORMAL. 3. LARGE LEFT EPIDIDYMAL HEAD CYST MEASURING UP TO 4.6 CM IN SIZE. 4. BILATERAL, LEFT GREATER THAN RIGHT, HYDROCELES
--- NOTE | 2017-05-08 10:28 | UC ---
Complaint Male HPI - HPI Summary HPI Summary: left testicular pain x 3 days + swelling testicle , blood in the urine no fever, + chills - History of Current Complaint Chief Complaint: UCGU Stated Complaint: PERSONAL Time Seen by Provider: 05/08/17 09:06 Hx Obtained From: Patient Onset/Duration: Gradual Onset, Lasting Days - 3, Still Present Timing: Constant Severity Initially: Moderate Severity Currently: Severe Location: Testicle - left side Character: Sharp Aggravating Factor(s): Voiding, Straining, Palpation Alleviating Factor(s): Nothing Associated Signs And Symptoms: Positive: Hematuria, Dysuria. Negative: Diaphoresis, Back Pain, Fever, Constipation, Blood in Stool, Rectal Pain, Appetite, Nausea, Vomiting(# Of Episodes =), Penile Swelling, Penile Discharge - Allergies/Home Medications Allergies/Adverse Reactions: Allergies Allergy/AdvReac Type Severity Reaction Status Date / Time Bee Venom Allergy Severe SWELLING, Verified 05/08/17 09:03 DIFFICULTY BREATHING PMH/Surg Hx/FS Hx/Imm Hx Previously Healthy: Yes Cardiovascular History: Cardiac Disease, Hypertension, Myocardial Infarction - Surgical History Surgical History: Yes Surgery Procedure, Year, and Place: OPEN HEART -STENTS. CARORTIDENDARECTOMY - Family History Known Family History: Positive: Hypertension - Social History Alcohol Use: None Substance Use Type: None Smoking Status (MU): Never Smoked Tobacco Type: Cigarettes When Did the Patient Quit Smoking/Using Tobacco: 2003 Review of Systems Constitutional: Negative Skin: Negative Eyes: Negative ENT: Negative Respiratory: Negative Genitourinary: Dysuria, Hematuria Neurovascular: Negative Musculoskeletal: Negative Is Patient Immunocompromised?: No All Other Systems Reviewed And Are Negative: Yes Physical Exam Triage Information Reviewed: Yes Appearance: Well-Nourished, Pain Distress Vital Signs: Initial Vital Signs Temp 98.4 F 05/08/17 08:57 Pulse 81 05/08/17 08:57 Resp 17 05/08/17 08:57 BP 135/76 05/08/17 08:57 Pulse Ox 100 05/08/17 08:57 Vital Signs Reviewed: Yes Eyes: Positive: Conjunctiva Clear ENT: Positive: Normal ENT inspection, Hearing grossly normal, Pharynx normal Neck exam: Normal Neck: Positive: Supple, Nontender, No Lymphadenopathy Respiratory: Positive: Chest non-tender, Lungs clear, Normal breath sounds Cardiovascular: Positive: RRR, No Murmur, Pulses Normal Abdominal Exam: Normal Abdomen Description: Positive: Soft. Negative: CVA Tenderness (R), CVA Tenderness (L), Distended, Guarding Bowel Sounds: Positive: Present Musculoskeletal Exam: Normal Skin Exam: Normal UC Physical Exam Vital Signs On Initial Exam: Initial Vitals Temp Pulse Resp BP Pulse Ox 98.4 F 81 17 135/76 100 05/08/17 08:57 05/08/17 08:57 05/08/17 08:57 05/08/17 08:57 05/08/17 08:57 - Genitalia Exam Male Genitalia: Circumcised Male Genitalia Cont.: Left: Testicles Tender, Testicles With Swelling, Bilateral : Testicles Descended, Scrotum Without Erythema Complaint Male Course/Dx - Differential Dx/Diagnosis Provider Diagnoses: left testicular pain. left testicular swelling Discharge - Discharge Plan Condition: Stable Disposition: HOME Prescriptions: Ciprofloxacin TAB* [Cipro 500 MG TAB*] 500 mg PO BID #20 tab Hydrocodone-Acetaminophen [[place] 5-325 mg] 1 tab PO Q6H PRN #20 tab MDD 4 tabs PRN Reason: Pain Patient Education Materials: Scrotal Pain (ED) Referrals: JEFFRY Greenwood [Primary Care Provider] - Hernandez Bowie MD [Medical Doctor] - As Soon As Possible Additional Instructions: epidydimitis hydroceles large epididymal cyst will start cipro 500 mg 2x per day x 10 days Hydrocodon as needed for pain referral to Urology boni go to ED if getting worse
== END 2017-05-08 10:29 | disposition home or self-care (01) ==
LOC: UCCORT 08:42
DX: N50.812 Left testicular pain (principal); N50.89 Other specified disorders of the male genital organs; N50.3 Cyst of epididymis; N43.3 Hydrocele, unspecified; I11.9 Hypertensive heart disease without heart failure; I25.2 Old myocardial infarction; Z95.5 Presence of coronary angioplasty implant and graft; Z87.891 Personal history of nicotine dependence
CPT/HCPCS: 76870; 81003; 87077; 87086; 87186; 99212; G0463